=== PATIENT | female | born 1940 | race Caucasian/White ===

== ENCOUNTER 2017-04-09 05:39 | Emergency (ER) | payer OTHER, MEDICARE ==
[2017-04-09] MEDS ORDERED: NS 1,000 ML IV ONE (07:16)
--- NOTE | 2017-04-09 07:20 | EDPHY ---
H & P Time Seen by Provider: 04/09/17 06:55 HPI/ROS: CHIEF COMPLAINT: Facial pain, right flank pain HISTORY OF PRESENT ILLNESS: 77-year-old female presents with facial and right flank pain after a fall. Last evening, she felt nauseated, got out of bed and went to the bathroom. On the way to the bathroom, she hit the corner of a cabinet and fell onto the floor. She struck her face on the cabinet. She was able to get up unassisted. She took ibuprofen with some relief. However, she woke up in the middle of the night with increased pain so she took oxycodone. This morning she felt woozy and nauseated so called EMS. She vomited once prior to arrival and now denies nausea. REVIEW OF SYSTEMS: Constitutional: No fever, no chills Eyes: No visual changes ENT: No sore throat Respiratory: No cough, no shortness of breath Cardiac: No chest pain Gastrointestinal: no abdominal pain Genitourinary: no dysuria Musculoskeletal: No leg pain or swelling Skin: No rash Neurological: No headache, no weakness Psychiatric: No depression Past Medical/Surgical History: Right total hip replacement Social History: Lives in own apartment Smoking Status: Never smoked Physical Exam: General Appearance: Alert, angry Head: no scalp swelling or tenderness Eyes: No conjunctival erythema, PERRLA, EOMI ENT, Mouth: tenderness over the right cheek area, small laceration to the upper mucosal mucosa on the right Neck: Nontender, full range of motion without pain Respiratory: No chest wall tenderness, lungs clear bilaterally Cardiovascular: Regular rate and rhythm Abdomen: Abdomen is soft and nontender Back: No midline tenderness to palpation or percussion, ecchymosis over the right lateral lower back Skin: no abrasions Back: No midline T/L/S tenderness Extremities: Pelvis is stable and nontender; no extremity tenderness or deformity, range of motion without pain Neurological: A&Ox3, normal motor function, normal sensory exam, cranial nerves intact Psychiatric: angry and confrontational Constitutional: Initial Vital Signs Temperature (C) 36.4 C 04/09/17 05:55 Heart Rate 67 04/09/17 05:55 Respiratory Rate 16 04/09/17 05:55 Blood Pressure 132/79 H 04/09/17 05:55 O2 Sat (%) 96 04/09/17 05:55 O2 Delivery Mode Room Air Allergies/Adverse Reactions: No Known Allergies Allergy (Unverified 07/07/15 10:08) Home Medications: Medication Instructions Recorded Ondansetron Odt [Zofran Odt 4 mg 4 mg PO Q4 PRN #6 tab 04/09/17 (*)] Medical Decision Making - Diagnostics EKG Interpretation: EKG interpreted by me reveals normal sinus rhythm, rate 62, no ST or T segment changes. ED Course/Re-evaluation: This patient presents after a mechanical fall with facial and left flank pain. There is no evidence of fracture and I do not feel that imaging is indicated in this patient. IV normal saline 1 L given for possible dehydration, related to vomiting at home. She feels better after IV fluids. Electrolytes are normal. She is able to ambulate to the bathroom with steady gait. Repeat exam is unchanged. She is asymptomatic; she has no nausea or weakness now. I feel that she is safe and stable for discharge home. I will send her home with a prescription for zofran in case the nausea recurs. Differential Diagnosis: Differential diagnosis includes does not limited to fracture, laceration, hemorrhage, dehydration. - Data Points Laboratory Results: Laboratory Results 04/09/17 07:30 04/09/17 07:30 04/09/17 04/09/17 07:30 07:30 WBC 9.51 10^3/uL H 10^3/uL (3.80-9.50) RBC 4.56 10^6/uL 10^6/uL (4.18-5.33) Hgb 14.0 g/dL g/dL (12.6-16.3) Hct 40.7 % % (38.0-47.0) MCV 89.3 fL fL (81.5-99.8) MCH 30.7 pg pg (27.9-34.1) MCHC 34.4 g/dL g/dL (32.4-36.7) RDW 14.6 % % (11.5-15.2) Plt Count 249 10^3/uL 10^3/uL (150-400) MPV 9.7 fL fL (8.7-11.7) Neut % (Auto) 83.7 % H % (39.3-74.2) Lymph % (Auto) 10.3 % L % (15.0-45.0) [place] % (Auto) 5.6 % % (4.5-13.0) Eos % (Auto) 0.0 % L % (0.6-7.6) Baso % (Auto) 0.2 % L % (0.3-1.7) Nucleat RBC Rel Count 0.0 % % (0.0-0.2) Absolute Neuts (auto) 7.96 10^3/uL H 10^3/uL (1.70-6.50) Absolute Lymphs (auto) 0.98 10^3/uL L 10^3/uL (1.00-3.00) Absolute Monos (auto) 0.53 10^3/uL 10^3/uL (0.30-0.80) Absolute Eos (auto) 0.00 10^3/uL L 10^3/uL (0.03-0.40) Absolute Basos (auto) 0.02 10^3/uL 10^3/uL (0.02-0.10) Absolute Nucleated RBC 0.00 10^3/uL 10^3/uL (0-0.01) Immature Gran % 0.2 % % (0.0-1.1) Immature Gran # 0.02 10^3/uL 10^3/uL (0.00-0.10) Sodium 132 mEq/L L mEq/L (134-144) Potassium 4.3 mEq/L mEq/L (3.5-5.2) Chloride 100 mEq/L mEq/L (97-110) Carbon Dioxide 22 mEq/l mEq/l (22-31) Anion Gap 10 mEq/L mEq/L (8-16) BUN 14 mg/dL mg/dL (7-23) Creatinine 0.6 mg/dL mg/dL (0.6-1.0) Estimated GFR > 60 Glucose 112 mg/dL H mg/dL (70-100) Calcium 9.3 mg/dL mg/dL (8.5-10.4) Medications Given: Discontinued Medications Sodium Chloride (Ns) 1,000 mls @ 0 mls/hr IV EDNOW ONE; Wide Open PRN Reason: Protocol Stop: 04/09/17 07:17 Last Admin: 04/09/17 08:21 Dose: 1,000 mls Departure - Departure Disposition: Home, Routine, Self-Care Clinical Impression: Multiple contusions Laceration of oral cavity Qualifiers: Encounter type: initial encounter Qualified Code(s): S01.512A - Laceration without foreign body of oral cavity, initial encounter Condition: Good Instructions: Acute Nausea and Vomiting (ED), Contusion in Adults (ED), Ondansetron (By mouth), Oxycodone/Acetaminophen (By mouth) Additional Instructions: Take Zofran 1 tablet under the tongue every 6 hours as needed for nausea. Take Percocet 1 tablet every 4 hours as needed for pain. Follow-up with your primary care physician tomorrow for recheck. Clear liquids today. Return for worsening symptoms or any concerns. Prescriptions: Ondansetron Odt [Zofran Odt 4 mg (*)] 4 mg PO Q4 PRN #6 tab PRN Reason: Nausea
--- NOTE | 2017-04-09 07:31 | CPEKG ---
Heart Rate: 62 RR Interval: 968 P-R Interval: 156 QRSD Interval: 94 QT Interval: 424 QTC Interval: 431 P [place]: 11 QRS [place]: -21 T Wave [place]: 7 EKG Severity - OTHERWISE NORMAL ECG - EKG Impression: SINUS RHYTHM EKG Impression: BORDERLINE LEFT AXIS DEVIATION Electronically Signed By: Estefanía Norris 09-Apr-2017 15:09:10
--- NOTE | 2017-04-09 07:31 | CPEKG ---
Heart Rate: 62 RR Interval: 968 P-R Interval: 156 QRSD Interval: 94 QT Interval: 424 QTC Interval: 431 P [place]: 11 QRS [place]: -21 T Wave [place]: 7 EKG Severity - OTHERWISE NORMAL ECG - EKG Impression: SINUS RHYTHM EKG Impression: BORDERLINE LEFT AXIS DEVIATION Electronically Signed By: Estefanía Norris 09-Apr-2017 15:09:10
[2017-04-09 08:19] LABS: PLATELET COUNT 249 10^3/uL (150-400)
[2017-04-09 09:59] VITALS: BP 135/86; PULSE 74; RESP 18; TEMP 98.2; O2SAT 95
[2017-04-09] MEDS ORDERED: ONDANSETRON DISINTEGRATING 4 MG TAB PO ONE (10:36)
[2017-04-09] MEDS ORDERED: OXYCODONE/APAP 5/325MG PREPACK#4 BTL TAKEHOME ONE (10:36)
[2017-04-09] MEDS ORDERED: ONDANSETRON 4MG PREPACK#2 BTL TAKEHOME ONE ×2 (10:39→10:40)
== END 2017-04-09 10:56 | disposition home or self-care (01) ==
LOC: EDUNIT# → EDBD
DX: S01.512A Laceration without foreign body of oral cavity, initial encounter (principal); S30.0XXA Contusion of lower back and pelvis, initial encounter; E86.9 Volume depletion, unspecified; W01.198A Fall on same level from slipping, tripping and stumbling with subsequent striking against other object, initial encounter

== ENCOUNTER 2017-04-09 11:49 | Emergency (ER) | payer MEDICARE ==
[2017-04-09 11:56] VITALS: TEMP 98.1
[2017-04-09] MEDS ORDERED: NS 1,000 ML IV ONE ×2 (12:20→14:21)
[2017-04-09] MEDS: ONDANSETRON 4 MG/2 ML VIAL IVP ONE (12:33)
[2017-04-09] MEDS ORDERED: KETOROLAC 15 MG/1 ML SDV IVP ONE (13:16)
[2017-04-09] MEDS ORDERED: METOCLOPRAMIDE 10 MG/2 ML VIAL IVP ONE (13:16)
[2017-04-09] MEDS ORDERED: KETOROLAC 15 MG/1 ML SDV ONE (13:17)
[2017-04-09] MEDS ORDERED: ONDANSETRON 4MG PREPACK#2 BTL TAKEHOME ONE (14:30)
--- NOTE | 2017-04-09 14:30 | EDPHY ---
H & P HPI/ROS: Chief complaint: Dizziness History of present illness: This is a 77-year-old female who was just seen in the emergency department and discharged. Upon walking out of the emergency department she started to feel dizzy again and got nauseated again. She checked back in. She feels she is dehydrated and needs more fluid and nausea medicine. She has no new complaints since being seen just a few minutes ago. Please see note from initial visit. Smoking Status: Never smoked Physical Exam: Patient declined a new physical exam, she was just seen Constitutional: Initial Vital Signs Temperature (C) 36.7 C 04/09/17 11:51 Heart Rate 70 04/09/17 11:51 Respiratory Rate 19 04/09/17 11:51 O2 Sat (%) 94 04/09/17 11:51 O2 Delivery Mode Room Air Allergies/Adverse Reactions: No Known Allergies Allergy (Verified 04/09/17 11:51) Home Medications: Medication Instructions Recorded Ondansetron Odt [Zofran Odt 4 mg 4 mg PO Q4 PRN #6 tab 04/09/17 (*)] oxyCODONE/APAP 5/325 [Percocet 1 tab PO Q4 PRN #10 tab 04/09/17 5/325 (*)] MDM/Departure - MDM Medications Given: Discontinued Medications Sodium Chloride (Ns) 1,000 mls @ 0 mls/hr IV EDNOW ONE; Wide Open PRN Reason: Protocol Stop: 04/09/17 12:21 Last Admin: 04/09/17 12:38 Dose: 1,000 mls Sodium Chloride (Ns) 1,000 mls @ 0 mls/hr IV ONCE ONE; Wide Open PRN Reason: Protocol Stop: 04/09/17 14:22 Last Admin: 04/09/17 14:31 Dose: 1,000 mls Ketorolac Tromethamine (Toradol) 15 mg IVP EDNOW ONE Stop: 04/09/17 13:17 Last Admin: 04/09/17 13:38 Dose: 15 mg Metoclopramide HCl (Reglan Injection) 10 mg IVP EDNOW ONE Stop: 04/09/17 13:17 Last Admin: 04/09/17 13:37 Dose: 10 mg Ondansetron HCl (Zofran) 4 mg IVP EDNOW ONE Stop: 04/09/17 12:21 Last Admin: 04/09/17 12:33 Dose: 4 mg ED Course/Re-evaluation: Patient is discussed with my primary supervising physician Dr. Estefanía Norris who initially saw patient. Patient was IV hydrated and treated with antiemetics and pain medication. She is feeling better. She would like to be discharged home to recover. Home care is discussed. Return precautions are given. - Depart Disposition: Home, Routine, Self-Care Clinical Impression: Dehydration, Dizzy Condition: Good Instructions: Dehydration (ED) Additional Instructions: Follow-up with you primary care doctor for continued evaluation and care If symptoms worsen or new symptoms develop return to the emergency room for recheck Referrals: Jose Campbell MD [Primary Care Provider] - As per Instructions
[2017-04-09 14:35] VITALS: BP 130/72; PULSE 72; RESP 16; O2SAT 96
== END 2017-04-09 14:48 | disposition home or self-care (01) ==
DX: E86.0 Dehydration (principal); E86.9 Volume depletion, unspecified
CPT/HCPCS: 96374; J1885; J2405; J2765

== ENCOUNTER 2017-07-02 12:42 | Emergency (ER) | payer OTHER ==
[2017-07-02 12:57] VITALS: TEMP 95
[2017-07-02] MEDS ORDERED: HYDROmorphONE/DILAUDID 1 MG/ML INJ ONE (13:00)
[2017-07-02] MEDS ORDERED: HYDROmorphONE/DILAUDID 1 MG/ML INJ IVP ONE (13:01)
--- NOTE | 2017-07-02 13:01 | EDPHY ---
H & P Stated Complaint: fall, hip pain Time Seen by Provider: 07/02/17 12:45 HPI/ROS: CHIEF COMPLAINT: Mechanical fall, right hip pain HISTORY OF PRESENT ILLNESS: The patient is brought in by paramedics after she sustained a mechanical fall onto her right hip. She was brought in his limited trauma activation by paramedics. She had an IV established and received fentanyl prior to arrival. In the emergency department she complains of moderate to severe pain in her right hip. The patient denies any headache, neck pain, back pain, numbness, weakness or additional complaints. The patient is not anticoagulated. The patient reports her pain is moderate to severe with attempted movement. REVIEW OF SYSTEMS: A comprehensive 10 point review of systems is otherwise negative aside from elements mentioned in the history of present illness. Source: Patient Exam Limitations: No limitations - Personal History Current Tetanus/Diphtheria Vaccine: Unsure - Medical/Surgical History Hx Asthma: No Hx Chronic Respiratory Disease: No Hx Diabetes: No Hx Cardiac Disease: No Hx Renal Disease: No Hx Cirrhosis: No Hx Alcoholism: No Hx HIV/AIDS: No Hx Splenectomy or Spleen Trauma: No Other PMH: R PETER, R hip revision, Shoulder surgery - Social History Smoking Status: Never smoked - Physical Exam Exam: General Appearance: Alert, obese, mild discomfort secondary to pain Head: Atraumatic Eyes: Pupils equal, round, reactive ENT, Mouth: No hemotympanum, no oral trauma Neck: Nontender, trachea midline Respiratory: No chest wall tender, subcutaneous air, lungs clear bilaterally Cardiovascular: Regular rate and rhythm Abdomen: Soft nontender abdomen Back: No midline T/L/S pain Extremities: Tenderness to palpation over right hip, right leg is shortened and internally rotated Neurological: A&Ox3, normal motor function, normal sensory exam Constitutional: Initial Vital Signs Temperature (C) 35 C L 07/02/17 12:55 Heart Rate 56 L 07/02/17 12:55 Respiratory Rate 14 07/02/17 12:55 Blood Pressure 130/70 H 07/02/17 12:55 O2 Sat (%) 93 07/02/17 12:55 O2 Delivery Mode [Procedural Nasal Cannula 2nd] O2 Delivery Mode [Procedural Nasal Cannula 1st] O2 Delivery Mode Room Air O2 (L/minute) [Procedural 2nd] 5 O2 (L/minute) [Procedural 1st] 5 Allergies/Adverse Reactions: No Known Allergies Allergy (Verified 04/09/17 11:51) Home Medications: Medication Instructions Recorded Ondansetron Odt [Zofran Odt 4 mg 4 mg PO Q4 PRN #6 tab 04/09/17 (*)] oxyCODONE/APAP 5/325 [Percocet 1 tab PO Q4 PRN #10 tab 04/09/17 5/325 (*)] Medical Decision Making - Diagnostics Imaging Results: Imaging Impressions Chest X-Ray 07/02/17 12:46 Impression: 1. No active cardiopulmonary disease seen. 2. Old fracture suspected posterior lateral right eighth rib. Hip X-Ray 07/02/17 12:46 Impression: 1. 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 Pelvis X-Ray 07/02/17 13:40 Impression: 1. Good alignment of right hip replacement postreduction. Procedures: 1. Procedure: Conscious sedation. Indication: Reduction of periprosthetic hip dislocation The patient is an appropriate candidate to tolerate procedural sedation. The patient's vital signs and mental status are appropriate. The risks, benefits and alternatives of the sedation were discussed with the patient. The patient is ASA classification 2. The patient's Mallampati airway score was 3 and the patient did meet the 3-3-2 airway measurements. A time out was completed. The patient was sedated with 80 mg of propofol. The patient was monitored with continuous pulse oximetry, transportation maintenance specialist and end tidal CO2. There were no complications and no significant hypoxemia. I performed both the sedation and the procedure. The total time I spent at the bedside during the procedural sedation was 18 minutes. The patient was examined after the procedural sedation and has returned to their pre-sedation baseline with normal vital signs and a normal examination. 2. Procedure: Periprosthetic hip dislocation reduction Indication: Periprosthetic hip dislocation The right prosthetic hip was reduced in the usual fashion without complications following moderate sedation with propofol.. Post reduction the patient's neurovascular exam is normal. Post reduction x-ray demonstrates reduction of the joint to the anatomic position. The procedure was performed by myself. ED Course/Re-evaluation: The patient presents to the ED with complaints of right hip pain following a mechanical fall. 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 The patient was verbally consented to undergo conscious sedation for reduction of her prosthetic hip dislocation. This was performed by myself it required two attempts at reduction. The patient was re-evaluated by myself at 2:45 p.m.. She is currently receiving IV fluid rehydration as she was dehydrated prior to arrival. She is also given po liquids. The patient was able to ambulate at 3:00 p.m.. She will be discharged from the emergency department with customary aftercare instructions and return precautions. Differential Diagnosis: Differential diagnosis considered includes hip fracture, sprain, dislocation, pelvic fracture, neurovascular injury - Data Points Medications Given: Discontinued Medications Hydromorphone HCl (Dilaudid) 1 mg IVP EDNOW ONE Stop: 07/02/17 13:02 Last Admin: 07/02/17 13:03 Dose: 1 mg Departure - Departure Disposition: Home, Routine, Self-Care Clinical Impression: Dislocation of hip joint prosthesis Qualifiers: Encounter type: initial encounter Qualified Code(s): T84.029A - Dislocation of unspecified internal joint prosthesis, initial encounter Condition: Good Instructions: Hip Dislocation (ED) Additional Instructions: 1. Please return to the emergency department for any pain, numbness or other concerns. 2. Follow up with your regular physician as needed.
[2017-07-02] MEDS ORDERED: PROPOFOL/EMULSION 1,000 MG/100 ML BOTTLE IV ONE (13:34)
[2017-07-02] MEDS ORDERED: fentaNYL 100 MCG/2 ML INJ ONE (13:41)
[2017-07-02 14:06] VITALS: BP 133/65
[2017-07-02] MEDS ORDERED: NS 1,000 ML IV ONE ×2 (14:42)
[2017-07-02 17:58] VITALS: PULSE 66; RESP 16; O2SAT 94
== END 2017-07-02 17:49 | disposition home or self-care (01) ==
LOC: EDUNIT#
PROC: 0SS9XZZ Reposition Right Hip Joint, External Approach (ICD-10-PCS; principal; 2017-07-02)
DX: T84.020A Dislocation of internal right hip prosthesis, initial encounter (principal); E86.9 Volume depletion, unspecified; W18.09XA Striking against other object with subsequent fall, initial encounter; Y82.8 Other medical devices associated with adverse incidents
CPT/HCPCS: 27265; 71045; 72170; 73502; 96374; 99152; 99285; J1170; J2704; G0390; J3010